=== PATIENT | female | born 1985 | race Caucasian/White ===

== ENCOUNTER 2018-06-11 22:00 | Emergency (ER) | payer OTHER ==
[2018-06-11 22:07] VITALS: BP 117/83; PULSE 108; TEMP 98; BMI 25.1
--- NOTE | 2018-06-11 23:18 | PDOC ---
Attending Attestation - HPI HPI: Patient is a 32 year old female with PMHx of sickle cell trait, asthma, who is 19 weeks 2 days (4th ) who presents with flu-like symptoms for 4 days. Patient reports 4 days of runny nose, congestion, body aches, productive cough (w/ green sputum). Yesterday she notes subjective fevers and chills. She states that she took some Tylenol and Benadryl with some relief. She does reports sick contacts at [employer] with flu-like symptoms. She states that she currently does not have an fevers or chills but she is concerned about her unborn child and hasnt felt the baby move. She has an appointment next Thursday for her 5 week follow up with her ObGyn. Denies any nausea, vomiting, diarrhea, shortness of breath, abdominal pain, hematochezia, vaginal bleeding, h/o STDs Social Hx: denies h/o cigarette use. - Physicial Exam PE: GENERAL: Awake, alert, and fully oriented, in no acute distress. Flushed cheeks. HEAD: No signs of trauma EYES: PERRLA, EOMI, sclera anicteric, conjunctiva clear ENT: Auricles normal inspection, hearing grossly normal, nares patent, oropharynx clear without exudates. Moist mucosa NECK: Normal ROM, supple, no lymphadenopathy, JVD, or masses LUNGS: Breath sounds equal, clear to auscultation bilaterally. No wheezes, and no crackles HEART: Regular rate and rhythm, normal S1 and S2, no murmurs, rubs or gallops ABDOMEN: Gravid, nontender, normoactive bowel sounds. No flank tenderness. EXTREMITIES: Normal range of motion, no LE edema. No clubbing or cyanosis. No cords, erythema, or tenderness NEUROLOGICAL: Cranial nerves II through XII grossly intact. Normal speech, normal gait SKIN: Warm, Dry, normal turgor, no rashes or lesions noted. <Radha Lala - Last Filed: 06/12/18 00:58> - Resident Resident Name: Sim Gupta - ED Attending Attestation I have performed the following: I have examined & evaluated the patient, The case was reviewed & discussed with the resident, I agree w/resident's findings & plan - Medical Decision Making 06/12/18 03:22 Patient Name: DANTE POLANCO THIS IS A PRELIMINARY REPORT FROM [facility] EXAM: Obstetrical ultrasound, less than 14 weeks IMAGES:24 DATE OF EXAM: 2018-06-12 00:24:34 REASON FOR EXAM: Decreased movement COMPARISON: None Findings: Single live intrauterine gestation with average ultrasound age of 19 weeks and 1 day, based on today's measurements. Fetus is in breech presentation with heart rate of 144 bpm. Placenta anterior in location. 06/12/18 03:26 Blood type B-positive Stable for discharge <Lauren Brennan - Last Filed: 06/12/18 20:17>
[2018-06-11] MEDS ORDERED: SODIUM CHLORIDE 0.9% 500 ML INFUS.BAG IV ONE (23:45)
--- NOTE | 2018-06-11 23:50 | PDOC ---
History of Present Illness - General Chief Complaint: Cold Symptoms Stated Complaint: CONGESTION AND COLD @ 19WKS PREG Time Seen by Provider: 06/11/18 23:18 - History of Present Illness Initial Comments: 06/12/18 00:25 32 yo F with PMHx of sickle cell trait, asthma, who is 19 weeks 2 days (4th ), p/w flu-like symptoms for 4 days. pt having 4 dys of runny nose, congestion, body aches, productive cough (w/ green sputum). Yesterday she notes subjective fevers and chills. She states that she took some Tylenol and Benadryl with some relief. She does reports sick contacts at [employer], people appeared to be sick with flu-like symptoms. pt states she has not had her flu shot. She states that she currently does not have an fevers or chills but she is concerned about her unborn child. She has an appointment next Thursday for her 5 mo follow up with her OBGYN. Denies any n/v/d, cp, SOB, abdominal pain, blood in stools, vaginal bleeding, h/ o STDs, urinary sxs Social Hx: denies h/o cigarette use. Past History - Past Medical History Allergies/Adverse Reactions: Allergies Allergy/AdvReac Type Severity Reaction Status Date / Time ciprofloxacin [From Cipro] Allergy Verified 06/11/18 22:07 Anemia: (SICKLE CELL TRAIT.) Asthma: Yes COPD: No - Suicide/Smoking/Psychosocial Hx Smoking History: Never smoked Review of Systems - Review of Systems Constitutional: Yes: See HPI HEENTM: Yes: See HPI Respiratory: Yes: See HPI Cardiac (ROS): Yes: See HPI ABD/GI: Yes: See HPI : Yes: See HPI Musculoskeletal: Yes: See HPI Integumentary: Yes: See HPI Neurological: Yes: See HPI Endocrine: Yes: See HPI Hematologic/Lymphatic: Yes: See HPI *Physical Exam - Vital Signs Last Vital Signs Temp Pulse Resp BP Pulse Ox 98.0 F 108 H 18 117/83 98 06/11/18 22:04 06/11/18 22:04 06/11/18 22:04 06/11/18 22:04 06/11/18 22:04 - Physical Exam Comments: 06/12/18 00:36 General: Well-nourished, NAD, coughing HEENT: NCAT, MMM, Neck: supple. no swelling no lymphadenopathy Respiratory: CTAB cardio: RRR S1 S2 no m/r/g. Abdomen: +BS , soft, NTND. Extremities: radial 2+ b/l. Warm, dry, no cyanosis, edema, calf tenderness. Skin: intact, no rashes Neuro: Alert and oriented x3, strength sensation grossly intact. Psych: Normal mood and affect ED Treatment Course - LABORATORY CBC & Chemistry Diagram: 06/12/18 00:23 06/12/18 00:23 Medical Decision Making - Medical Decision Making 06/12/18 00:37 32 yo F with PMHx of sickle cell trait, asthma, who is 19 weeks 2 days (4th ), p/w flu-like symptoms for 4 days. afebrile, tachy other vitals wnl likely viral URI vs flu. PNA on diff but less likley. will not get CXR given preg status and clinical presentation -CBC, CMP, type screen, beta quant, flu swab -pelvic u/s -IVF bolus 06/12/18 03:23 labs unremarkable U/S shows no acute pathology. fetus in breech presentation pt stable and ready for discharge *DC/Admit/Observation/Transfer Diagnosis at time of Disposition: Viral upper respiratory illness - Discharge Dispostion Disposition: HOME Condition at time of disposition: Stable Decision to Admit order: No - Referrals Referrals: Richard Banda MD [Primary Care Provider] - - Patient Instructions Printed Discharge Instructions: How to Avoid a Cold or Flu, DI for Viral Upper Respiratory Infection -- Adult, DI for Common Cold Additional Instructions: you came in with a cold. your labs were unremarkable and your ultrasound was normal please drink plenty of fluids take tylenol for fever please follow up with your OBGYN or primary care physician within 1 week If you experience worsening of fevers, chills, cough, chest pain, shortness of breath, nausea, vomit, diarrhea please caome back to the ER or call 911 - Post Discharge Activity
[2018-06-12 00:42] LABS: BASO % 0.3 % (0-2.0); EOS % 2.9 % (0-4.5); HEMATOCRIT 38.6 % (32.4-45.2); HEMOGLOBIN 13.2 GM/dL (10.7-15.3); LYMPH % 9.9 % (8-40); MCH 29.8 pg (25.7-33.7); MCHC 34.2 g/dl (32.0-36.0); MEAN PLT VOLUME 8.8 fl (7.5-11.1); MONO % 6.7 % (3.8-10.2); NEUT % 80.2 % (42.8-82.8); PLATELET COUNT 207 K/MM3 (134-434); RBC 4.43 M/mm3 (3.60-5.2); RDW 14.1 % (11.6-15.6); WHITE BLOOD COUNT 6.6 K/mm3 (4.0-10.0)
[2018-06-12 01:28] LABS: ALBUMIN 2.9 g/dl (3.4-5.0); ALK PHOS 48 U/L (45-117); ANION GAP 7 MMOL/L (8-16); BILIRUBIN,TOTAL 1.4 mg/dL (0.2-1); BLOOD UREA NITROGEN 4 mg/dL (7-18); CALCIUM 8.3 mg/dL (8.5-10.1); CHLORIDE 106 mmol/L (98-107); CO2 24 mmol/L (21-32); CREATININE 0.6 mg/dL (0.55-1.3); GLUCOSE,RANDOM 105 mg/dL (74-106); POTASSIUM 3.6 mmol/L (3.5-5.1); SGOT/AST 23 U/L (15-37); SGPT/ALT 22 U/L (13-61); SODIUM 137 mmol/L (136-145); TOT PROT 6.1 g/dl (6.4-8.2)
== END 2018-06-12 03:41 | disposition home or self-care (01) ==
LOC: JER 22:00
DX: O26.892 Other specified pregnancy related conditions, second trimester (principal); J06.9 Acute upper respiratory infection, unspecified; Z3A.19 19 weeks gestation of pregnancy; Z86.2 Personal history of diseases of the blood and blood-forming organs and certain disorders involving the immune mechanism
CPT/HCPCS: 36415; 76801-TC; 80053; 84702; 85025; 86850; 86900; 86901; 87804; 99281-25